=== PATIENT | female | born 1970 | race Caucasian/White ===

== ENCOUNTER → 2021-04-05 02:27 | Outpatient (CLI) | payer OTHER, SELFPAY ==
[2021-04-05 18:15] LABS: SARS-CoV-2 RNA PCR Negative
== END ==
PROVIDERS: PCP Family Medicine; Visit Provider Internal Medicine Gastroenterology
DX: Z01.812 Encounter for preprocedural laboratory examination (principal); Z20.822 Contact with and (suspected) exposure to COVID-19
CPT/HCPCS: C9803; U0003; U0005

== ENCOUNTER 2021-04-08 00:47 | Day surgery (SDC) | payer OTHER, SELFPAY ==
[2021-03-27 13:09] VITALS: BMI 36.7
[2021-04-08 06:24] VITALS: BP 139/99; PULSE 81; RESP 18; TEMP 36.9; O2SAT 100; BMI 36.9
[2021-04-08] MEDS: LACTATED RINGERS 1,000 ML 150 ML IV CONT (06:37)
--- NOTE | 2021-04-08 07:00 | WPDANESEPPF ---
Anes - Initial Pre Proc Eval Procedure: Operation Date: 04/08/21 07:30 Proposed Procedures p Screening Colonoscopy - Marquez Jenkins MD Date/Time: 04/08/21 07:00 Surgeon: Marquez Jenkins MD Pre Op Diagnosis: family hx of colon ca Patient Data Age: 50 Gender: F Height: 5 ft 3 in Weight: 94.6 kg Last Vital Signs Temp 36.9 C 04/08/21 06:24 Pulse 81 04/08/21 06:24 Resp 18 04/08/21 06:24 BP 139/99 H 04/08/21 06:24 Pulse Ox 100 04/08/21 06:24 Allergies Allergy/AdvReac Type Severity Reaction Status Date / Time Influenza Virus Vaccines Allergy Severe Hives Verified 04/08/21 06:10 Home Medications Medication Instructions Recorded Confirmed Type cetirizine 10 mg tablet 10 mg PO DAILY 10/04/19 04/08/21 History hydrochlorothiazide 12.5 mg tablet 12.5 mg PO DAILY 10/04/19 04/08/21 History levothyroxine 175 mcg tablet 175 mcg PO DAILY 10/04/19 04/08/21 History lisinopril 10 1 tablet PO DAILY 10/04/19 04/08/21 History mg-hydrochlorothiazide 12.5 mg tablet metoprolol succinate 100 mg 100 mg PO DAILY 10/04/19 04/08/21 History tablet,extended release 24 hr norethindrone 1 mg-ethinyl 1 tablet PO DAILY 10/04/19 04/08/21 History estradiol 35 mcg tablet rosuvastatin 10 mg tablet 10 mg PO DAILY 10/04/19 04/08/21 History sumatriptan succinate 100 mg tablet See Rx Instructions PO .COMPLEX 10/04/19 04/08/21 History cyanocobalamin (vitamin B-12) 1,000 mcg PO DAILY 04/16/20 04/08/21 History 1,000 mcg tablet montelukast 10 mg tablet 10 mg PO DAILY #90 tablet 05/28/20 04/08/21 Rx cholecalciferol (vitamin D3) 1,000 unit PO DAILY 03/27/21 04/08/21 History [Vitamin D3] Patient hx anesthesia problems: none Family hx anesthesia problems: none PMFSH Past Medical History Medical History Abnormal fasting glucose Alcohol abuse Anemia BMI 37.0-37.9, adult 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 COVID-19 Essential (primary) hypertension Family history of colon cancer in mother Hypersomnia Hypothyroidism, unspecified Irritable bowel syndrome with diarrhea Migraine without aura Mixed hyperlipidemia Restless legs syndrome Vitamin B12 deficiency anemia Vitamin D deficiency, unspecified (01/10/21) Level low at 26.2 on 01/10/2021 Family History Family History Mother Diabetes mellitus Hypertension Patient's mother is in good health Carcinoma of colon Sibling Diabetes mellitus Hypertension Patient's sister is in good health Father Patient's father is Acute myocardial infarction, Onset Age: 67 Family history of malignant neoplasm Social History Social History Smoking packs per day: 0.5 Smoking cigarettes per day: 10.0 Years smoked: 15 Smoking pack-years: 7.50 Smoking status: Former smoker Tobacco type: cigarettes Alcohol intake: former Substance use: never Substance use type: does not use Spiritual care concerns: No Anes - Eval Final PreProcedure Day of Procedure 04/08/21 07:00 Patient weight: obese Heart: regular rate and rhythm Lungs: clear to auscultation Airway: Mallampati scale class II Neurological: alert and oriented Last oral intake: >/= 8 hours ASA classification: III Emergent: no Anesthetic plan: proceed Anesthesia type and monitoring: general GIVS and standard monitoring Informed Consent: The patient's anesthetic plan and its attendant risks and benefits were discussed with the patient/family/POA. Questions were solicited and answers provided to the satisfaction of the patient/family/POA.
--- NOTE | 2021-04-08 07:08 | PM.HPGS ---
History of Present Illness History of Present Illness Consent: Risks, benefits, and alternatives have been discussed and questions answered. Patient agrees to proceed with procedure. Chief complaint: family hx of colon ca Narrative: Lisbeth Champion is a 50 year old female For colon cancer screening. She has very strong family history of colon cancer. Her mother and maternal aunt and 2 maternal uncles also had colon cancer. 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 COVID-19 Essential (primary) hypertension Family history of colon cancer in mother Hypersomnia Hypothyroidism, unspecified Irritable bowel syndrome with diarrhea Migraine without aura Mixed hyperlipidemia Restless legs syndrome Vitamin B12 deficiency anemia Vitamin D deficiency, unspecified (01/10/21) Level low at 26.2 on 01/10/2021 Family History Family History Mother Diabetes mellitus Hypertension Patient's mother is in good health Carcinoma of colon Sibling Diabetes mellitus Hypertension Patient's sister is in good health Father Patient's father is Acute myocardial infarction, Onset Age: 67 Family history of malignant neoplasm Social History Social History Smoking packs per day: 0.5 Smoking cigarettes per day: 10.0 Years smoked: 15 Smoking pack-years: 7.50 Smoking status: Former smoker Tobacco type: cigarettes Alcohol intake: former Substance use: never Substance use type: does not use Spiritual care concerns: No Meds Home Medications and Allergies Home Medications Medication Instructions Recorded Confirmed Type cetirizine 10 mg tablet 10 mg PO DAILY 10/04/19 04/08/21 History hydrochlorothiazide 12.5 mg tablet 12.5 mg PO DAILY 10/04/19 04/08/21 History levothyroxine 175 mcg tablet 175 mcg PO DAILY 10/04/19 04/08/21 History lisinopril 10 1 tablet PO DAILY 10/04/19 04/08/21 History mg-hydrochlorothiazide 12.5 mg tablet metoprolol succinate 100 mg 100 mg PO DAILY 10/04/19 04/08/21 History tablet,extended release 24 hr norethindrone 1 mg-ethinyl 1 tablet PO DAILY 10/04/19 04/08/21 History estradiol 35 mcg tablet rosuvastatin 10 mg tablet 10 mg PO DAILY 10/04/19 04/08/21 History sumatriptan succinate 100 mg tablet See Rx Instructions PO .COMPLEX 10/04/19 04/08/21 History cyanocobalamin (vitamin B-12) 1,000 mcg PO DAILY 04/16/20 04/08/21 History 1,000 mcg tablet montelukast 10 mg tablet 10 mg PO DAILY #90 tablet 05/28/20 04/08/21 Rx cholecalciferol (vitamin D3) 1,000 unit PO DAILY 03/27/21 04/08/21 History [Vitamin D3] Allergies Allergy/AdvReac Type Severity Reaction Status Date / Time Influenza Virus Vaccines Allergy Severe Hives Verified 04/08/21 06:10 Vital Signs Vital Signs - 24 hr 04/08/21 06:24 Temperature 36.9 C Pulse Rate 81 Respiratory Rate 18 Blood Pressure 139/99 H Pulse Oximetry 100 Exam Resp: Auscultation: clear to auscultation bilaterally Cardio: Rate: regular rate Rhythm: regular rhythm GI: GI Palp: Yes Soft to palpation and No Tenderness to palpation present (GI) Assessment and Plan Assessment and plan (1) Colon cancer screening: Code(s): Z12.11 - Encounter for screening for malignant neoplasm of colon Status: Acute Assessment and Plan: Colonoscopy with possible biopsy or polypectomy or cautery or injection of substances.
[2021-04-08 07:43] VITALS: BP 116/64; PULSE 81; RESP 18; O2SAT 99
[2021-04-08 07:53] VITALS: BP 123/73; PULSE 72; RESP 23; O2SAT 100
[2021-04-08 08:03] VITALS: BP 125/63; PULSE 66; RESP 15; O2SAT 100
== END 2021-04-08 08:10 | disposition home or self-care (01) ==
PROVIDERS: PCP Family Medicine; Visit Provider Internal Medicine Gastroenterology
PROC: 0DJD8ZZ Inspection of Lower Intestinal Tract, Via Natural or Artificial Opening Endoscopic (ICD-10-PCS; CPT 45378; principal; 2021-04-08 07:30)
DX: Z12.11 Encounter for screening for malignant neoplasm of colon (principal); Z80.0 Family history of malignant neoplasm of digestive organs; D64.9 Anemia, unspecified; I10 Essential (primary) hypertension; Z86.16 Personal history of COVID-19; G47.10 Hypersomnia, unspecified; E03.9 Hypothyroidism, unspecified; K58.0 Irritable bowel syndrome with diarrhea; E78.2 Mixed hyperlipidemia; G25.81 Restless legs syndrome; E53.8 Deficiency of other specified B group vitamins; E55.9 Vitamin D deficiency, unspecified; Z87.891 Personal history of nicotine dependence
CPT/HCPCS: 45378; C9803; J2704; J7120; U0003; U0005